=== PATIENT | male | born 1985 | race Two or more races ===

== ENCOUNTER 2024-05-14 19:47 | Emergency (ER) | payer MEDICAID ==
[~2024-05-14] VITALS: Ht 167.6 cm; Wt 72.6 kg
[2024-05-14 20:37] VITALS: BP 110/66; TEMP 98; O2SAT 98
== END 2024-05-14 20:37 | disposition home or self-care (01) ==
LOC: ER 19:51
DX: R07.9 Chest pain, unspecified (principal); R00.2 Palpitations; F17.200 Nicotine dependence, unspecified, uncomplicated; F12.10 Cannabis abuse, uncomplicated; F19.10 Other psychoactive substance abuse, uncomplicated
CPT/HCPCS: 71045-TC